=== PATIENT | female | born 1950 | race Caucasian/White ===

== ENCOUNTER → 2016-09-12 | Outpatient (CLI) | payer OTHER, MEDICARE ==
[~2016-09-12] MED LIST: GLUC1TAB21 PO; HYDR-4246 PO; LEVO250T59 PO; LUTE20CA12 PO; METH1TAB54 PO; MULT-933 PO
== END ==
LOC: LABN 23:59
PROVIDERS: ATTEND Specialist
DX: N20.1 Calculus of ureter (principal)
CPT/HCPCS: 82340

== ENCOUNTER → 2016-09-13 | Outpatient (CLI) | payer OTHER, MEDICARE ==
[2016-09-13 18:09] LABS: POTASSIUM 3.3 MEQ/L (3.6-5); URIC ACID 6.2 MG/DL (2.5-7.5)
== END ==
LOC: LAB 17:24
PROVIDERS: ATTEND Specialist
DX: N21.0 Calculus in bladder (principal)
CPT/HCPCS: 84132; 84550

== ENCOUNTER 2017-12-19 17:10 | Inpatient (IN) ==
[2017-12-19] MEDS ORDERED: ONDANSETRON 4 MG/2 ML INJECTION IVP PRN (17:16)
[2017-12-19] MEDS ORDERED: NS 1,000 ML IV ONE (17:16)
[2017-12-19] MEDS ORDERED: BISACODYL 10 MG SUPPOSITORY RECTALLY PRN (17:18)
[2017-12-19 18:03] VITALS: BMI 29.8
--- NOTE | 2017-12-19 18:16 | History & Physical Report ---
History of Present Illness Date: 12/19/17 Chief complaint: Exhausted HPI: Nella Mosley is a 67 year old who developed right flank pain and body aches, as if she had a fever on 12/18/17. She had violent shakes and chills but never actually took her fever. She felt utterly exhausted and weak. She has been thirsty but each time she tried to drink/eat anything she became nauseated. She has also had a headache. She denies chest pain or palpitations, difficulty breathing, cough/congestion or sore throat. She denies dizziness or syncope. She denies abdominal pain, diarrhea, or constipation. She has not had any urinary symptoms such as dysuria, frequency, or urgency. She had a bug bite to her right patel but otherwise denies any other rashes. She presented to [facility] on 12/18/17. She was found to be in a-flutter with a rate of 132, and after cardizem she converted to NSR. She was diagnosed with UTI and had a WBC of 19.4 and 94% neutrophils. She felt much better after her HR slowed, and IVF and analgesics, and was discharged home with Rx for metoprolol and levaquin. She followed up with Leonides Allen APRN in the clinic, but her symptoms were still persistent with nausea, myalgias, and fatigue. At that time Dr. Yeager was notified and she was admitted to inpatient status for further workup for suspected pyelonephritis, possible sepsis, and new-onset a-flutter. LOS is expected to exceed 2 overnights. Review of Systems All systems PM: 10-point ROS was reviewed, no additional remarkable complaints except - Constitutional Constitutional: Present: as per HPI - EENMT Eyes: Present: requires corrective lenses Nose: Absent: allergies Mouth/Throat: Absent: sore throat - Cardiovascular Cardiovascular: Present: as per HPI Vascular: Present: see HPI. Absent: pedal edema - Respiratory Respiratory: Present: as per HPI - Gastrointestinal Gastrointestinal: Present: as per HPI - Genitourinary Genitourinary: Present: as per HPI - Musculoskeletal Musculoskeletal: Present: as per HPI - Integumentary/Breasts Integumentary: Present: as per HPI - Neurological Neurological: Present: as per HPI - Psychiatric Psychiatric: Absent: anxiety - Endocrine Endocrine: Present: as per HPI - Hematologic/Lymphatic Hematologic/Lymphatic: Absent: easy bleeding, easy bruising - Allergic/Immunologic Allergic/Immunologic: Absent: seasonal rhinorrhea Past Medical History Medical History: Medical History (Last Updated 12/19/17 @ 18:30 by Kat Arreola APRN) Hyperparathyroidism (Chronic) Onset Date: ~10/06/17 Nephrolithiasis (Chronic) Onset Date: ~03/2016 Prediabetes (Chronic) Onset Date: ~10/06/17 Atrial flutter Onset Date: ~12/18/17 Surgical History: cystoscopy with left ureteral stenting 12/2016. Colonoscopy 2007, 2017 (Dr. Stern). Hysterectomy (age 47). Right rotator cuff repair ( age 59) Family History Updates: Mother - breast cancer. Father - heart disease. MGF - diabetes Family History: As Above - Social History Smoking status: Former smoker Medications Home Medications Medication Instructions Recorded Confirmed Type HydroCHLOROthiazide [Hydrodiuril] 25 mg PO BID 01/13/17 12/19/17 History Multivitamin [One Daily] 1 each PO DAILY 09/09/17 12/19/17 History metaxalone 800 mg tablet See Label Instructions PO TID PRN 12/11/17 12/19/17 Rx #10 tab Levofloxacin [Levaquin] 1 tab PO DAILY #10 tab 12/18/17 12/19/17 Rx Metoclopramide HCl [Reglan] 10 mg PO QID PRN #30 tab 12/18/17 12/19/17 Rx Metoprolol Tartrate 50 mg PO BID #60 tab 12/18/17 12/19/17 Rx predniSONE [Prednisone] See Label Instructions PO DAILY 12/19/17 12/19/17 History Allergies Allergy/AdvReac Type Severity Reaction Status Date / Time Sulfa (Sulfonamide Allergy Unknown High Fever Verified 12/11/17 11:00 Antibiotics) Exam Vital Signs: Temperature 101.5 F H 12/19/17 17:34 Pulse Rate 83 12/19/17 17:34 Respiratory Rate 16 12/19/17 17:34 Blood Pressure 123/62 12/19/17 17:34 Pulse Oximetry 95 12/19/17 17:34 Height/Weight/BMI: Height 1.55 m Weight 71.7 kg Body Mass Index 29.8 - Constitutional Present: mild distress, well nourished, well developed - Routine HEENT Exam Head: Present: normocephalic Eye: Present: PERRL. Absent: conjunctival icterus, scleral injection ENT: Present: mucous membranes moist, oropharynx clear - Routine Neck Exam Present: supple, lymphadenopathy - Routine Respiratory Exam Present: crackles (mild bibasilar crackles) - Routine Cardiovascular Exam Present: RRR, S1, S2, murmur (2-3/6 MARY) - Routine Abdominal Exam Present: soft, normoactive bowel sounds, non distended, non tender - Routine Extremities Exam Present: no edema, pulses intact, normal capillary refill - Routine Back/Spine/Pelvis Exam Back/Spine: Present: full ROM. Absent: CVA tenderness - Routine Skin Exam Present: intact, erythema (Left upper arm), dry, warm - Routine Neurological Exam Present: alert, oriented X3, CN II-XII intact, moving all extremities, vision grossly intact, hearing grossly intact, normal speech. Absent: sensory deficit , motor deficit, altered mental status, facial asymmetry - Routine Psychiatric Exam Present: normal affect, normal thought process, cooperative Results - Labs CBC & Chem 7: 12/19/17 17:33 12/19/17 17:33 Microbiology Results: Microbiology 12/19/17 17:51 Peripheral/Iv Start Gram Stain - Final Not performed 12/19/17 17:33 Peripheral/Iv Start Gram Stain - Final Not performed Assessment and Plan Assessment and Plan: Assessment Severe sepsis secondary to E. coli Pyelonephritis (SIRS = leukocytosis, fever 101.5, organ dysfunction: bilirubin >2) UTI/Pyelonephritis with E coli New onset a-flutter on 12/18/17 Erythema to Left upper arm (tricep area) Transaminitis Hypokalemia (POA) Hypercalcemia (POA) - chronic Hypophosphatemia Hyperparathyroidism Nephrolithiasis Overweight with BMI 29.9 Plan Admit, inpatient status, under the hospitalist service. PCP: Dr. Whelan A-fluttmagi -EKG, troponin -Echo in am -Telemetry Pyelonephritis, severe sepsis -Urine culture from 12/18/17 + for E. coli, sensitivities pending -Rocephin daily -lactate normal @ 1.8 -F/U procalcitonin, cultures -IVF bolus then NS at 125 ml/hr Hypokalemia/Hypophosphatemia -replacement ordered per attending -Mag 1.8 Transaminitis -? sepsis response -trend Advanced directives -Brother is DPOA -Code status: DNR [place] and ED records reviewed. DVT Prophylaxis: SCD's Resuscitation Status: Do Not Resuscitate - Physician Narrative Physician: Andriy Yeager MD Narrative: Date: 12/19/17 Time: 1947 Have independently interviewed and examined pt. Chart reviewed. Case discussed with my MANUFACT[employer]ING [employer]ANT CONTROLLER. Care plan developed with my supervision; agree with above. Patient started feeling very tired/weak yesterday-unusual for her as typically very energetic. Would feel hot/cold. Notes nausea. Presented to ED for evaluation. HR initially high-EKG showing a flutter. Given IVF and Diltiazem and HR improved. WBC with elevation. Urine showing evidence of infection so started on levofloxacin. Did follow up in clinic today, but still very weak, washed out, and achy. Has frontal MOULTON. Muscle aches. Nausea but no emesis. Not feeling SOA or congested. No pain with breathing, chest pressure or palpitations. Temp elevated at 103 in clinic. With symptoms, made direct admit for treatment of severe sepsis secondary to Ecoli UTI/Pyelonephritis. Lungs: clear CV: regular AB: soft nt/nd BS decreased MSE: awake alert appropriate Plan: Inpatient admission due to sepsis from Ecoli. IVF for support - will bolus 1L NS and than initiate NS with 20 KCL and Kphos at 125cc/hr. Ceftriaxone for urinary coverage - check on sensitivities from ED. Check ECHO secondary to rhythm change yesterday - monitor tele; cardiology consult as indicated. Zofran prn nausea. Will hold on metoprolol initiated in ED yesterday. Check TSH. Monitor lab. Care to return to Dr Whelan at time of discharge from [facility]. Of note - is at the end of Prednisone taper. See in walk in clinic on 12/11 secondary to back pain. Tapering down on Prednisone - to be on 10mg daily for 3 more days then stop. Will not reinstitute Prednisone at this time. Hospital Course Summary Disclaimer: The visit summary below is not to be considered part of the above Progress Note. Hospital Course: 12/19/17 Admit, inpatient status, under the hospitalist service. PCP: Dr. Slechta Pyelonephritis, severe sepsis -Urine culture from 12/18/17 + for E. coli, sensitivities pending -Rocephin daily -lactate normal @ 1.8 -F/U procalcitonin, cultures -IVF bolus then NS at 125 ml/hr A-flutter -- in ED 12/18/17 -EKG, troponin -Echo in am -Telemetry -Likely sepsis response Hypokalemia/Hypophosphatemia -replacement ordered per attending -Mag 1.8 Transaminitis -? sepsis response -trend Advanced directives -Brother is DPOA -Code status: DNR
[2017-12-19] MEDS: ACETAMINOPHEN 325 MG TABLET PO PRN ×2 (18:17→22:43)
[2017-12-19] MEDS: CEFTRIAXONE 1 G in NS 100 ML IV SCH (18:18)
[2017-12-19] MEDS ORDERED: METAXALONE 800 MG TABLET PO PRN (19:12)
[2017-12-19] MEDS: POTASSIUM CHLORIDE INJ 20 MEQ, POTASSIUM PHOSPHATE (mEq) 20 MEQ in NS 1,000 ML IV SCH (19:56)
[2017-12-20] MEDS: POTASSIUM CHLORIDE INJ 20 MEQ, POTASSIUM PHOSPHATE (mEq) 20 MEQ in NS 1,000 ML IV SCH (04:23)
[2017-12-20] MEDS: ACETAMINOPHEN 325 MG TABLET PO PRN ×3 (06:15→21:39)
[2017-12-20] MEDS: MULTI-VITAMIN PLAIN TABLET PO SCH (08:46)
--- NOTE | 2017-12-20 08:52 | XRay Report ---
Indication: Sepsis PROCEDURE: XR chest 1V: Encounter: Initial Comparison: None FINDINGS: Minimal linear atelectasis or scar in the left lower lobe. The lungs are otherwise clear. There is no consolidative pneumonia, pleural effusion or pneumothorax identified. The heart size, pulmonary vasculature and mediastinum are within normal limits. Subacute healing right clavicular fracture. IMPRESSION: No acute cardiopulmonary abnormality. .
--- NOTE | 2017-12-20 11:27 | XRay Report ---
INDICATION: borderline hypoxia, rule out pulm edema, other? PROCEDURE: CHEST 2-VIEWS UPRIGHT (PA & LAT) Encounter: Initial COMPARISON: December 19, 2017 FINDINGS: Lungs again show linear scarring or atelectasis in the left lower lobe. There is new mild interstitial prominence with trace pleural fluid seen on the lateral view. No pneumothorax. No lobar pneumonia. Heart size and mediastinal contours are stable. Impression: Developing mild pulmonary edema. .
--- NOTE | 2017-12-20 11:32 | Progress Note ---
- Date 12/20/17 Subjective: Nella is still feeling miserable. She is very fatigued and tired. While her nausea has improved, she does not feel like eating anything. She drank some apple juice earlier however. She has started to cough today. She denies feeling short of breath but was mildly hypoxic this morning at 89% on room air. She continues to have fever and chills and was chilling when I saw her. She states that her right flank pain has resolved and it doesn't feel at all like she has a kidney stone. We talked about getting a CT scan to look for a stone but she declined. Objective Vital signs: Temperature 100.1 F 12/20/17 11:06 Pulse Rate 74 12/20/17 07:51 Respiratory Rate 14 12/20/17 07:23 Blood Pressure 106/59 12/20/17 07:23 Pulse Oximetry 92 12/20/17 11:06 Height/Weight/BMI: Height 1.55 m Weight 74.9 kg Body Mass Index 29.8 - Constitutional Present: mild distress, well nourished, well developed - Routine HEENT Exam Head: Present: normocephalic Eye: Present: PERRL. Absent: conjunctival icterus, scleral injection - Routine Respiratory Exam Present: crackles (B/L bases, increased ) - Routine Cardiovascular Exam Present: RRR, S1, S2, murmur (soft ) - Routine Abdominal Exam Present: soft, non distended, non tender. Absent: normoactive bowel sounds ( hyperactive) - Routine Extremities Exam Present: no edema - Routine Musculoskeletal Exam Musculoskeletal: Present: moving extremities well - Routine Skin Exam Present: warm (febrile). Absent: dry (clammy, diaphoretic) Comments: The erythema to her left tricep area has resolved - Routine Neurological Exam Present: alert, oriented X3, CN II-XII intact, moving all extremities, vision grossly intact, hearing grossly intact, normal speech. Absent: sensory deficit , motor deficit, altered mental status, facial asymmetry - Routine Psychiatric Exam Present: normal affect, normal thought process, cooperative Results - Labs CBC & Chem 7: 12/20/17 03:51 12/20/17 03:51 Microbiology Results: Microbiology 12/19/17 17:51 Urine, Voided (Cc/notcc) Urine Culture - Preliminary Escherichia coli 12/19/17 17:51 Peripheral/Iv Start Blood Culture - Preliminary Culture Initiated - Results Pending 12/19/17 17:33 Peripheral/Iv Start Blood Culture - Preliminary Culture Initiated - Results Pending Assessment and Plan Assessment and Plan: Assessment Severe sepsis secondary to E. coli Pyelonephritis (SIRS = leukocytosis, fever 101.5, organ dysfunction: bilirubin >2) UTI/Pyelonephritis with E coli New onset a-flutter on 12/18/17 Erythema to Left upper arm (tricep area) Transaminitis Hypokalemia (POA) - resolved Thrombocytopenia (not POA) Mild hypoxia 89% room air, mild pulmonary edema (12/20/17) Hypercalcemia (POA) - chronic Hypophosphatemia (POA) - resolved Hyperparathyroidism Nephrolithiasis Overweight with BMI 29.9 Plan A-flutter -EKG yesterday showed sinus with IVC delay, troponin neg. -Echo done this am, pending Pyelonephritis, severe sepsis -Urine culture from 12/18/17 + for E. coli, pansensitive -Urine culture from 12/19/17 also + for E. coli -Continue Rocephin, day #2 -Procalcitonin 6.89 --> 4.54 -WBC trending down -continues to have fevers. Mild hypoxia -CXR repeated, personally reviewed - mild edema -Stop IVF and give Lasix 20 mg IV x1 -IS Hypokalemia/Hypophosphatemia -resolved after replacement yesterday Transaminitis -Improving, trending down. -Total bili 1.5 Low TSH (0.19) -normal free T4 -will discuss with attending 12/20/2017-1:20 PM-I examined the patient independently. I reviewed this chart, the patient history, and the COMMERCIAL STRIPPER's/PA's documented findings as above. We discussed and formulated the assessment and plan as above with the additions below.-Dr. Ness The patient was seen this afternoon in her room. She states she is still feeling worn out and feels hot and sweaty. She states she had some right lower abdominal pain yesterday but that has resolved. She denies having any flank pain. A week ago when she was in immediate care she had sciatica pain in her buttock and leg but did not have flank pain or back pain at that time. She states her sciatic pain has resolved. Her appetite is poor but she is drinking fluids without difficulties. She had borderline hypoxia this morning but denied feeling short of breath. She denies lightheadedness, chest pains or palpitations. When she was in the emergency room on Tuesday she had an EKG showing atrial flutter with rapid ventricular response and intraventricular conduction delay. She reportedly converted with IV fluids and Cardizem. She states she's never had any heart problems to her knowledge. She did not notice any palpitations or chest discomfort. Here in the hospital she's been on telemetry and has been in sinus rhythm. On exam she is alert and in no acute distress. Her glasses are actually steaming over and she states this is because she feels so warm. Skin is mildly diaphoretic. Chest reveals crackles in the bases without wheezes or rhonchi. Cardiovascular reveals a regular rate and rhythm. Abdomen is soft, bowel sounds are normal and abdomen is nontender. Back exam reveals no CVA tenderness. She does have a little bit of mild discomfort in the left low back with percussion but otherwise denies any back pain. Extremities are free of edema. SCDs are on. Blood cultures 2 are pending Urine culture from the ER visit on 12/18/2017 shows Escherichia coli which is pansensitive Urine culture from admission yesterday shows Escherichia coli with sensitivities pending. White blood cell count is coming down, but her steroids were also discontinued TSH was low at 0.19 but free T4 was normal. Pro-calcitonin is trending down. Calcium has improved with IV fluids. Phosphorus has normalized after being low yesterday. AST and ALT and total bilirubin are all trending down. Chest x-ray reveals developing mild pulmonary edema-I have also viewed the films and agree Impression and plan Severe sepsis-white count and pro-calcitonin improving UTI with Escherichia coli/possible pyelonephritis/history of nephrolithiasis- the patient may need a 2 week course of antibiotics-new Rocephin and likely switch to oral antibiotics when symptomatically improving and stable for dismissal Regarding possible atrial flutter with rapid ventricular response on 12/18/2017 when the patient was in the ER-consult Dr. Padilla. The patient has not had recurrence. She is also noted to have intraventricular conduction delay Echocardiogram has been ordered and is pending Hyperparathyroidism-calcium has improved with IV fluids. We'll monitor. Low TSH with normal free T4-recommend thyroid evaluation with Dr. Valles when she sees him regarding hyperparathyroidism Mild hypoxia this morning-resolved, IV fluids discontinued and one time dose of Lasix given. Encouraged supplement shakes while the patient has poor appetite DVT Prophylaxis: SCD's Resuscitation Status: Do Not Resuscitate - Physician Narrative Narrative: Date: 12/19/17 Time: 1811 Hospital Course Summary Disclaimer: The visit summary below is not to be considered part of the above Progress Note. Hospital Course: 12/19/17 Admit, inpatient status, under the hospitalist service. PCP: Dr. Whelan Pyelonephritis, severe sepsis -Urine culture from 12/18/17 + for E. coli, sensitivities pending -Rocephin daily -lactate normal @ 1.8 -F/U procalcitonin, cultures -IVF bolus then NS at 125 ml/hr A-flutter -- in ED 12/18/17 -EKG, troponin -Echo in am -Telemetry -Likely sepsis response Hypokalemia/Hypophosphatemia -replacement ordered per attending -Mag 1.8 Transaminitis -? sepsis response -trend Advanced directives -Brother is DPOA -Code status: DNR 12/20/17 -EKG yesterday showed sinus with IVC delay, troponin neg. Echo done this am -Urine culture from 12/18/17 + for E. coli, pansensitive. Urine culture from 12/19 also + for E. coli -Continue Rocephin, day #2. Procalcitonin 6.89 --> 4.54. WBC trending down. Continues to have fevers. Mild hypoxia-CXR repeated - mild edema. Stop IVF and give Lasix 20 mg IV x1. IS Hypokalemia/Hypophosphatemia-resolved after replacement yesterday Transaminitis-Improving, trending down. Low TSH (0.19)-normal free T4
[2017-12-20] MEDS ORDERED: FUROSEMIDE 20 MG/2 ML INJECTION IVP ONE (11:44)
--- NOTE | 2017-12-20 13:40 | Cardiology Consult Note ---
History of Present Illness Consult date: 12/20/17 Requesting physician: Shantelle Ness Consult reason: atrial fibrillation Chief complaint: exhausted History of present illness: Nella is a 67 year old who developed right flank pain and body aches, violent shakes and chills but never actually took her temperature. She felt exhausted and weak. She was thirsty but when she tried to drink/eat anything she became nauseated. She has also had a headache. She presented to [facility] on 12/18/17. She was found to be in a-flutter with a rate of 132, and after Cardizem she converted to NSR. She was diagnosed with UTI and had a WBC of 19.4 and 94% neutrophils. She felt much better after her HR slowed, and IVF and analgesics, and was discharged home with Rx for metoprolol and Levaquin. She followed up with Leonides Allen APRN in the clinic, but her symptoms were still persistent with nausea, myalgias, and fatigue. At that time Dr. Yeager was notified and she was admitted to inpatient status for further workup for suspected pyelonephritis , possible sepsis, and new-onset a-flutter. Due to new A Flutter on EKG, Dr. Padilla is consulted and we appreciate the consult. She denies chest pain or palpitations, difficulty breathing, cough/congestion or sore throat. She denies dizziness or syncope. She denies abdominal pain, diarrhea, or constipation. She has not had any urinary symptoms such as dysuria , frequency, or urgency. Review of Systems - Constitutional Constitutional: Present: as per HPI - EENMT Eyes: Absent: change in vision Balance: Absent: vertigo Mouth/Throat: Present: as per HPI - Cardiovascular Cardiovascular: Absent: chest pain, palpitations, syncope, dyspnea on exertion, orthopnea, edema, heart murmur Rhythm: Absent: abnormal rhythm Vascular: Absent: pedal edema - Respiratory Respiratory: Present: as per HPI - Gastrointestinal Gastrointestinal: Present: as per HPI - Genitourinary Genitourinary: Present: as per HPI - Integumentary/Breasts Integumentary: Absent: rash - Neurological Neurological: Present: as per HPI - Endocrine Endocrine: Present: as per HPI PFSH Patient Stated Medical History Cardiac Arrhythmia Yes Sleep Apnea No: Pt denies Hx Kidney Stones Yes Osteoarthritis Yes Post Menopausal Yes Clinic Medical History (Last Updated 12/19/17 @ 18:30 by Kat Arreola APRN) Hyperparathyroidism (Chronic Medical ~10/06/17) Nephrolithiasis (Chronic Medical ~03/2016) Prediabetes (Chronic Medical ~10/06/17) Atrial flutter (Acute Medical ~12/18/17) Surgical History: cystoscopy with left ureteral stenting 12/2016. Colonoscopy 2017 (Dr. Stern). Hysterectomy (age 47). Right rotator cuff repair ( age 59) Family History: Family History (Last Updated 12/19/17 @ 18:18 by Kat Arreola APRN) Mother Cancer of breast Father Heart disease CABG x3 Maternal Grandfather Type 2 diabetes mellitus Family History Updates: Mother - breast cancer. Father - heart disease. MGF - diabetes - Social History Smoking status: Former smoker Substance use type: does not use Alcohol intake frequency: does not drink Medications Home Medications Medication Instructions Recorded Confirmed Type HydroCHLOROthiazide [Hydrodiuril] 25 mg PO BID 01/13/17 12/19/17 History Multivitamin [One Daily] 1 each PO DAILY 09/09/17 12/19/17 History metaxalone 800 mg tablet See Label Instructions PO TID PRN 12/11/17 12/19/17 Rx #10 tab Levofloxacin [Levaquin] 1 tab PO DAILY #10 tab 12/18/17 12/19/17 Rx Metoclopramide HCl [Reglan] 10 mg PO QID PRN #30 tab 12/18/17 12/19/17 Rx Metoprolol Tartrate 50 mg PO BID #60 tab 12/18/17 12/19/17 Rx predniSONE [Prednisone] See Label Instructions PO DAILY 12/19/17 12/19/17 History Allergies Allergy/AdvReac Type Severity Reaction Status Date / Time Sulfa (Sulfonamide Allergy Unknown High Fever Verified 12/11/17 11:00 Antibiotics) Exam Vital signs: Temperature 100.1 F 12/20/17 11:06 Pulse Rate 74 12/20/17 07:51 Respiratory Rate 18 12/20/17 12:05 Blood Pressure 106/59 12/20/17 07:23 Pulse Oximetry 94 12/20/17 12:05 - Constitutional no acute distress, well nourished, cooperative - Routine HEENT Exam Head: Present: normocephalic ENT: Present: mucous membranes moist - Routine Neck Exam Absent: JVD, carotid bruit - Routine Chest/Breast/Axilla Exam Chest wall: Absent: tenderness - Routine Respiratory Exam Present: rales. Absent: dyspnea, CTA bilaterally - Routine Cardiovascular Exam Present: RRR, S1, S2, murmur - Routine Abdominal Exam Present: soft, non tender - Routine Extremities Exam Present: no edema - Routine Skin Exam Present: intact, dry, warm - Routine Neurological Exam Present: alert - Routine Psychiatric Exam Present: normal affect Results 12/21/17 04:07 12/21/17 04:07 Cardiac Enzymes 12/19/17 12/20/17 Range/Units 17:33 03:51 AST 55 H D 51 H (14-36) U/L Troponin I < 0.012 (0-0.12) ng/ml CBC 12/19/17 12/20/17 Range/Units 17:33 03:51 WBC 13.6 H 9.4 (4.5-11.0) T/MM3 RBC 4.40 3.92 L (4.00-5.20) M/MM3 Hgb 13.1 11.7 L (12-16) GM/DL Hct 37.9 34.8 L (36-46) % Plt Count 153 126 L (130-400) T/MM3 Neut # (Auto) Not performed Not performed Lymph # (Auto) Not performed Not performed [place] # (Auto) Not performed Not performed Eos # (Auto) Not performed Not performed Baso # (Auto) Not performed Not performed Comprehensive Metabolic Panel 12/19/17 12/20/17 Range/Units 17:33 03:51 Sodium 137 138 (136-146) MEQ/L Potassium 3.2 L 3.7 (3.6-5) MEQ/L Chloride 98 104 D (98-107) MEQ/L Carbon Dioxide 28 D 27 (22-30) MEQ/L BUN 23.0 H 18.0 H (7-17) MG/DL Creatinine 0.8 D 0.7 (0.7-1.2) mg/dL Glucose 133 H 122 H (65-110) MG/DL Calcium 11.1 H D 10.3 H (8.4-10.2) MG/DL AST 55 H D 51 H (14-36) U/L ALT 71 H 64 H (1-35) U/L Alkaline Phosphatase 126 110 (38-126) U/L Total Protein 6.8 5.6 L (6.3-8.2) g/dL Albumin 4.2 3.2 L (3.5-5.0) g/dL Intake and Output 12/19/17 12/20/17 12/20/17 22:59 06:59 14:59 Intake Total 1149.995 / 0251.617 5067.5455 / 1214.5455 1521.4165 / 1521.4165 Output Total 300 / 300 200 / 200 Balance 849.995 / 776.155 9498.5455 / 1014.5455 1521.4165 / 1521.4165 Intake: IV 1149.995 / 6371.821 8892.5455 / 1014.5455 935.4165 / 935.4165 Ceftriaxone 1 g In Ns 100 ml @ 100 / 100 200 mls/hr IV Q24H [facility] Rx#: [id number] Ns 1,000 ml @ 999.9 mls/hr IV . 1049.995 / 1049.995 Q1H ONE Rx#:[id number] Potassium Chloride Inj 20 meq 1014.5455 / 1014.5455 935.4165 / 935.4165 POTASSIUM PHOSPHATE (mEq) 20 meq In Ns 1,000 ml @ 125 mls/hr IV .Q8H7M [facility] Rx#:[id number] Oral 0 / 0 200 / 200 586 / 586 Output: Urine 300 / 300 200 / 200 Other: Urine Appearance Clear Clear Urine Color Bright Yellow Light Nery Urine Odor Normal # Voids 1 1 Weight 158 lb 1.143 oz 165 lb 2.02 oz Patient Weight 12/21/17 06:59 Weight 165 lb 2.02 oz - Imaging and Cardiology Imaging & Cardiology Narrative: Date of Exam: 12/20/17 Type of Exam(s): US echo doppler complete DATE OF PROCEDURE 12/20/2017 PROCEDURE PERFORMED 2D echocardiography, M-mode assessment, full color spectral Doppler assessment. FINDINGS 1. LEFT VENTRICLE. Left ventricle appears normal in size. Normal left ventricular wall thickness noted. Left ventricular systolic function appears low normal. Estimated left ventricular ejection fraction is 50-55%. No significant regional wall motion abnormalities noted. Grade II diastolic dysfunction noted suggestive of elevated left ventricular end diastolic pressure and elevated left atrial pressure. 2. RIGHT VENTRICLE. Right ventricle appears normal in size. Normal right ventricular wall thickness noted. Normal right ventricular systolic function noted. 3. RIGHT ATRIUM. Right atrium appears normal in size. 4. LEFT ATRIUM. Left atrium is mildly enlarged. 5. MITRAL VALVE. Mitral valve appears structurally normal. There is trivial mitral regurgitation noted. No significant mitral stenosis noted. 6. AORTIC VALVE. Aortic valve appears tricuspid. No significant aortic stenosis noted. Trivial aortic regurgitation noted. 7. TRICUSPID VALVE. Tricuspid valve appears structurally normal. Trivial tricuspid regurgitation noted. 8. PULMONIC VALVE. Pulmonic valve poorly visualized on today's study. Trivial pulmonic regurgitation noted. 9. INFERIOR VENA CAVA. IVC appears normal in size. Normal respirophasic variation noted. 10. PULMONARY ARTERY. Unable to estimate pulmonary artery systolic pressure accurately due to incomplete tricuspid regurgitation jet. CONCLUSIONS 1. Low normal left ventricular systolic function, estimated ejection fraction of 50-55%. 2. Normal RV systolic function. 3. Trivial mitral regurgitation noted. 4. Trivial aortic regurgitation noted. 5. Trivial tricuspid regurgitation noted. 6. Inferior vena cava appears normal in size with normal respirophasic variation noted. Date of Exam: 12/20/17 Ordering Provider: Shantelle Ness MD Type of Exam(s): XR chest 2V Reason for Exam(s): borderline hypoxia, rule out pulm edema, other? INDICATION: borderline hypoxia, rule out pulm edema, other? PROCEDURE: CHEST 2-VIEWS UPRIGHT (PA & LAT) Encounter: Initial COMPARISON: December 19, 2017 FINDINGS: Lungs again show linear scarring or atelectasis in the left lower lobe. There is new mild interstitial prominence with trace pleural fluid seen on the lateral view. No pneumothorax. No lobar pneumonia. Heart size and mediastinal contours are stable. Impression: Developing mild pulmonary edema. 12/20/17 13:59 12/21/17 12:56 EKG interpretations - EKG EKG results cardiology: sinus rhythm - Blocks, axis, hypertrophy, ST abn QRS axis and voltage: left axis deviation (-30 to -90) Assessment and Plan - Assessment and Plan (1) Tachycardia Current visit: Yes Status: Acute Presented to ED, EKG showed A Flutter, given Cardizem and fluid bolus - converted and discharged with abx for UTI and BB - now hospitalized with sepsis, no return of tachycardia - EKG reviewed, appears ST but impossible to say for sure - No previous history of arrhythmia - Plan outpatient holter monitor after discharge - continue to monitor telemetry - TSH 0.19 and Mag 1.9 (2) Sepsis Current visit: Yes Status: Acute Urinary source. Managed by medicine - Assessment and Plan Tachycardia Current visit: Yes Status: Acute - Presented to ED, EKG showed A Flutter, given Cardizem and fluid bolus - converted and discharged with abx for UTI and BB - now hospitalized with sepsis, no return of tachycardia - EKG reviewed, appears ST but impossible to say for sure - No previous history of arrhythmia - Plan outpatient holter monitor after discharge - continue to monitor telemetry - TSH 0.19 and Mag 1.9 Sepsis Current visit: Yes Status: Acute - Urinary source. Managed by medicine Thank you for allowing us to participate in the care of this patient, we will follow along with you Hospital Course Summary Disclaimer: The visit summary below is not to be considered part of the above Progress Note. Hospital Course: 12/19/17 Admit, inpatient status, under the hospitalist service. PCP: Dr. Whelan Pyelonephritis, severe sepsis -Urine culture from 12/18/17 + for E. coli, sensitivities pending -Rocephin daily -lactate normal @ 1.8 -F/U procalcitonin, cultures -IVF bolus then NS at 125 ml/hr A-flutter -- in ED 12/18/17 -EKG, troponin -Echo in am -Telemetry -Likely sepsis response Hypokalemia/Hypophosphatemia -replacement ordered per attending -Mag 1.8 Transaminitis -? sepsis response -trend Advanced directives -Brother is DPOA -Code status: DNR 12/20/17 -EKG yesterday showed sinus with IVC delay, troponin neg. Echo done this am -Urine culture from 12/18/17 + for E. coli, pansensitive. Urine culture from 12/19 also + for E. coli -Continue Rocephin, day #2. Procalcitonin 6.89 --> 4.54. WBC trending down. Continues to have fevers. Mild hypoxia-CXR repeated - mild edema. Stop IVF and give Lasix 20 mg IV x1. IS Hypokalemia/Hypophosphatemia-resolved after replacement yesterday Transaminitis-Improving, trending down. Low TSH (0.19)-normal free T4
--- NOTE | 2017-12-20 16:06 | Echocardiogram ---
DATE OF PROCEDURE 12/20/2017 PROCEDURE PERFORMED 2D echocardiography, M-mode assessment, full color spectral Doppler assessment. INDICATION: Abnormal EKG, CHF FINDINGS 1. LEFT VENTRICLE. Left ventricle appears normal in size. Normal left ventricular wall thickness noted. Left ventricular systolic function appears low normal. Estimated left ventricular ejection fraction is 50-55%. No significant regional wall motion abnormalities noted. Grade II diastolic dysfunction noted suggestive of elevated left ventricular end diastolic pressure and elevated left atrial pressure. 2. RIGHT VENTRICLE. Right ventricle appears normal in size. Normal right ventricular wall thickness noted. Normal right ventricular systolic function noted. 3. RIGHT ATRIUM. Right atrium appears normal in size. 4. LEFT ATRIUM. Left atrium is mildly enlarged. 5. MITRAL VALVE. Mitral valve appears structurally normal. There is trivial mitral regurgitation noted. No significant mitral stenosis noted. 6. AORTIC VALVE. Aortic valve appears tricuspid. No significant aortic stenosis noted. Trivial aortic regurgitation noted. 7. TRICUSPID VALVE. Tricuspid valve appears structurally normal. Trivial tricuspid regurgitation noted. 8. PULMONIC VALVE. Pulmonic valve poorly visualized on today's study. Trivial pulmonic regurgitation noted. 9. INFERIOR VENA CAVA. IVC appears normal in size. Normal respirophasic variation noted. 10. PULMONARY ARTERY. Unable to estimate pulmonary artery systolic pressure accurately due to incomplete tricuspid regurgitation jet. CONCLUSIONS 1. Low normal left ventricular systolic function, estimated ejection fraction of 50-55%. 2. Normal RV systolic function. 3. Trivial mitral regurgitation noted. 4. Trivial aortic regurgitation noted. 5. Trivial tricuspid regurgitation noted. 6. Inferior vena cava appears normal in size with normal respirophasic variation noted. [facility]
[2017-12-20] MEDS ORDERED: HYDROCODONE/APAP 5mg/325mg TABLET PO PRN (17:25)
[2017-12-20] MEDS: CEFTRIAXONE 1 G in NS 100 ML IV SCH (17:41)
[2017-12-20] MEDS ORDERED: IBUPROFEN 400 MG TABLET PO PRN (18:39)
[2017-12-20] MEDS: IBUPROFEN 200 MG TABLET PO PRN (18:55)
[2017-12-20] MEDS ORDERED: NS FLUSH BAG 500ml IV PRN (19:29)
[2017-12-20] MEDS: LEVOFLOXACIN PB 750 MG/150 ML BAG IV SCH (19:37)
[2017-12-21] MEDS: PHOSPHORUS 250 MG TABLET PO SCH ×3 (09:01→17:28)
[2017-12-21] MEDS: MULTI-VITAMIN PLAIN TABLET PO SCH (09:03)
--- NOTE | 2017-12-21 13:00 | Cardiology Progress Note ---
Subjective Principal diagnosis: tachycardia Interval history: Nella is seen in follow up for tachycardia. She is in no distress, denies chest pain, pressure, palpitations, dizziness or nausea Exam Vital signs: Temperature 97.5 F 12/21/17 11:18 Pulse Rate 65 12/21/17 11:18 Respiratory Rate 18 12/21/17 11:18 Blood Pressure 123/65 12/21/17 11:18 Pulse Oximetry 97 12/21/17 11:18 Inpatient Medications: Generic Name Dose Route Start Last Admin Trade Name Freq PRN Reason Stop Dose Admin Acetaminophen 650 mg 12/19/17 17:17 12/20/17 21:39 Tylenol PO 650 mg Q5H PRN Administration Discomfort Hydrocodone Bitart/Acetaminophen 1 tab 12/20/17 17:25 12/20/17 17:36 [place] 5/325 PO 1 tab Q6H PRN Administration Pain Bisacodyl 10 mg 12/19/17 17:18 Dulcolax RECTALLY DAILY PRN Constipation Ceftriaxone Sodium 1 g/ Sodium 100 mls @ 200 mls/hr 12/19/17 18:00 12/20/17 18:11 Chloride IV Infused Q24H [facility] Levofloxacin/Dextrose 750 mg in 150 mls @ 100 mls/hr 12/20/17 20:00 12/20/17 21:14 Levaquin 750 Mg Premix IV Infused Q24H [facility] Ibuprofen 400 mg 12/20/17 18:45 12/20/17 18:55 Motrin PO 400 mg Q6H PRN Administration Pain Magnesium Hydroxide 30 ml 12/19/17 17:17 Mom PO DAILY PRN Constipation Metaxalone 400 - 800 mg 12/19/17 19:12 Skelaxin PO TID PRN muscle spasm Multivitamins 1 tab 12/20/17 09:00 12/21/17 09:03 Theragran PO 1 tab DAILY [facility] Administration Ondansetron HCl 4 mg 12/19/17 17:16 12/19/17 18:17 Zofran IVP 4 mg Q6H PRN Administration Nausea Sodium Chloride 500 ml 12/20/17 19:29 12/20/17 19:37 Normal Saline IV 500 ml PRN PRN Administration Sodium Phosphate 500 mg 12/21/17 08:00 12/21/17 11:25 K-Phos *Neutral* Tablet PO 12/21/17 17:31 500 mg WM EVE Administration Discontinued Medications Generic Name Dose Route Start Last Admin Trade Name Chrissy PRN Reason Stop Dose Admin Furosemide 20 mg 12/20/17 11:44 12/20/17 11:56 Lasix 20 Mg/2 Ml IVP 12/20/17 11:45 20 mg ONCE ONE Administration Sodium Chloride 1,000 mls @ 999.9 mls/hr 12/19/17 17:16 12/19/17 19:56 Normal Saline IV 12/19/17 18:15 Infused .Q1H [facility] Potassium Chloride 20 meq/ 1,014.5455 mls @ 125 mls/hr 12/19/17 19:30 11:52 Potassium Phosphate 20 meq/ IV Infused Sodium Chloride .Q8H7M [facility] Ibuprofen 400 mg 12/20/17 18:39 Motrin PO Q6H PRN Pain Potassium Chloride 20 meq 12/20/17 11:44 12/20/17 11:56 K-Dur 20 Meq Tablet PO 12/20/17 11:45 20 meq O ONE Administration - Constitutional no acute distress, well nourished, cooperative - Routine HEENT Exam Head: Present: normocephalic ENT: Present: mucous membranes moist - Routine Neck Exam Absent: JVD, carotid bruit - Routine Chest/Breast/Axilla Exam Chest wall: Absent: tenderness - Routine Respiratory Exam Present: CTA bilaterally. Absent: dyspnea, rales, wheezes - Routine Cardiovascular Exam Present: RRR, no murmur - Routine Abdominal Exam Present: soft, non tender - Routine Extremities Exam Present: no edema - Routine Skin Exam Present: intact, dry, warm - Routine Neurological Exam Present: alert, oriented X3 - Routine Psychiatric Exam Present: normal affect Results 12/22/17 04:46 12/22/17 04:46 CBC 12/21/17 Range/Units 04:07 WBC 5.6 D (4.5-11.0) T/MM3 RBC 3.80 L (4.00-5.20) M/MM3 Hgb 11.3 L (12-16) GM/DL Hct 33.5 L (36-46) % Plt Count 112 L (130-400) T/MM3 Neut # (Auto) 4.6 (1.8-7.7) T/MM3 Lymph # (Auto) 0.4 L (1-4.8) T/MM3 [place] # (Auto) 0.5 (0-0.8) T/MM3 Eos # (Auto) 0.1 (0-0.5) T/MM3 Baso # (Auto) 0.0 (0-0.2) T/MM3 Comprehensive Metabolic Panel 12/21/17 Range/Units 04:07 Sodium 139 (136-146) MEQ/L Potassium 4.2 (3.6-5) MEQ/L Chloride 105 (98-107) MEQ/L Carbon Dioxide 27 (22-30) MEQ/L BUN 16.0 (7-17) MG/DL Creatinine 0.6 L (0.7-1.2) mg/dL Glucose 103 (65-110) MG/DL Calcium 10.8 H (8.4-10.2) MG/DL Albumin 3.1 L (3.5-5.0) g/dL Intake and Output 12/20/17 12/21/17 12/21/17 22:59 06:59 14:59 Intake Total 1450 / 1450 0 / 0 190 / 190 Output Total 550 / 550 Balance 900 / 900 0 / 0 189 / 189 Intake: IV 250 / 250 Ceftriaxone 1 g In Ns 100 ml @ 100 / 100 200 mls/hr IV Q24H [facility] Rx#: [id number] Levofloxacin Pb 750 mg In 150 150 / 150 ml @ 100 mls/hr IV Q24H [facility] Rx# :[id number] Oral 1200 / 1200 0 / 0 190 / 190 Output: Urine 550 / 550 Urine Amount (Catheter) Other: Urine Appearance Clear Urine Color Light Nery Urine Odor Normal # Voids 3 Weight 159 lb 2.78 oz Patient Weight 12/22/17 06:59 Weight 159 lb 2.78 oz - Imaging and Cardiology Imaging & Cardiology Narrative: Date of Exam: 12/20/17 Type of Exam(s): US echo doppler complete DATE OF PROCEDURE 12/20/2017 PROCEDURE PERFORMED 2D echocardiography, M-mode assessment, full color spectral Doppler assessment. FINDINGS 1. LEFT VENTRICLE. Left ventricle appears normal in size. Normal left ventricular wall thickness noted. Left ventricular systolic function appears low normal. Estimated left ventricular ejection fraction is 50-55%. No significant regional wall motion abnormalities noted. Grade II diastolic dysfunction noted suggestive of elevated left ventricular end diastolic pressure and elevated left atrial pressure. 2. RIGHT VENTRICLE. Right ventricle appears normal in size. Normal right ventricular wall thickness noted. Normal right ventricular systolic function noted. 3. RIGHT ATRIUM. Right atrium appears normal in size. 4. LEFT ATRIUM. Left atrium is mildly enlarged. 5. MITRAL VALVE. Mitral valve appears structurally normal. There is trivial mitral regurgitation noted. No significant mitral stenosis noted. 6. AORTIC VALVE. Aortic valve appears tricuspid. No significant aortic stenosis noted. Trivial aortic regurgitation noted. 7. TRICUSPID VALVE. Tricuspid valve appears structurally normal. Trivial tricuspid regurgitation noted. 8. PULMONIC VALVE. Pulmonic valve poorly visualized on today's study. Trivial pulmonic regurgitation noted. 9. INFERIOR VENA CAVA. IVC appears normal in size. Normal respirophasic variation noted. 10. PULMONARY ARTERY. Unable to estimate pulmonary artery systolic pressure accurately due to incomplete tricuspid regurgitation jet. CONCLUSIONS 1. Low normal left ventricular systolic function, estimated ejection fraction of 50-55%. 2. Normal RV systolic function. 3. Trivial mitral regurgitation noted. 4. Trivial aortic regurgitation noted. 5. Trivial tricuspid regurgitation noted. 6. Inferior vena cava appears normal in size with normal respirophasic variation noted. 12/22/17 15:46 12/22/17 15:46 Date of Exam: 12/20/17 Ordering Provider: Shantelle Ness MD Type of Exam(s): XR chest 2V Reason for Exam(s): borderline hypoxia, rule out pulm edema, other? INDICATION: borderline hypoxia, rule out pulm edema, other? PROCEDURE: CHEST 2-VIEWS UPRIGHT (PA & LAT) Encounter: Initial COMPARISON: December 19, 2017 FINDINGS: Lungs again show linear scarring or atelectasis in the left lower lobe. There is new mild interstitial prominence with trace pleural fluid seen on the lateral view. No pneumothorax. No lobar pneumonia. Heart size and mediastinal contours are stable. Impression: Developing mild pulmonary edema. Assessment and Plan - Assessment and Plan (1) Tachycardia Status: Acute (2) Sepsis Status: Acute - Assessment and Plan 12/20/17 Tachycardia Current visit: Yes Status: Acute - Presented to ED, EKG showed A Flutter, given Cardizem and fluid bolus - converted and discharged with abx for UTI and BB - now hospitalized with sepsis, no return of tachycardia - EKG reviewed, appears ST but impossible to say for sure - No previous history of arrhythmia - Plan outpatient holter monitor after discharge - continue to monitor telemetry - TSH 0.19 and Mag 1.9 Sepsis Current visit: Yes Status: Acute - Urinary source. Managed by medicine Thank you for allowing us to participate in the care of this patient, we will follow along with you 12/21/17 No change to plan of care - no tachycardia, or arrhythmia seen on telemetry Hospital Course Summary Disclaimer: The visit summary below is not to be considered part of the above Progress Note. Hospital Course: 12/19/17 Admit, inpatient status, under the hospitalist service. PCP: Dr. Whelan Pyelonephritis, severe sepsis -Urine culture from 12/18/17 + for E. coli, sensitivities pending -Rocephin daily -lactate normal @ 1.8 -F/U procalcitonin, cultures -IVF bolus then NS at 125 ml/hr A-flutter -- in ED 12/18/17 -EKG, troponin -Echo in am -Telemetry -Likely sepsis response Hypokalemia/Hypophosphatemia -replacement ordered per attending -Mag 1.8 Transaminitis -? sepsis response -trend Advanced directives -Brother is DPOA -Code status: DNR 12/20/17 -EKG yesterday showed sinus with IVC delay, troponin neg. Echo done this am -Urine culture from 12/18/17 + for E. coli, pansensitive. Urine culture from 12/19 also + for E. coli -Continue Rocephin, day #2. Procalcitonin 6.89 --> 4.54. WBC trending down. Continues to have fevers. Mild hypoxia-CXR repeated - mild edema. Stop IVF and give Lasix 20 mg IV x1. IS Hypokalemia/Hypophosphatemia-resolved after replacement yesterday Transaminitis-Improving, trending down. Low TSH (0.19)-normal free T4
[2017-12-21] MEDS: IBUPROFEN 200 MG TABLET PO PRN (15:41)
--- NOTE | 2017-12-21 16:18 | Progress Note ---
- Date 12/21/17 Subjective: Patient is seen today resting in bed. She reports she is feeling better, but is very "wiped out." She reports she was able to eat a little bit today. She's been drinking fluids. She states she is urinating well. No fever today that she is aware of. Reports her headache is gone. No chest pain, shortness of breath, nausea or vomiting. She had been afebrile since last evening, but has 101.9 temp now at 1534. Objective Vital signs: Temperature 101.9 F H 12/21/17 15:34 Pulse Rate 71 12/21/17 15:34 Respiratory Rate 18 12/21/17 15:34 Blood Pressure 129/73 12/21/17 15:34 Pulse Oximetry 97 12/21/17 15:34 Height/Weight/BMI: Height 1.55 m Weight 72.2 kg Body Mass Index 29.8 - Constitutional Present: no acute distress, well nourished, well developed - Routine HEENT Exam Head: Present: normocephalic, atraumatic - Routine Respiratory Exam Present: CTA bilaterally. Absent: wheezes - Routine Cardiovascular Exam Present: RRR, no murmur - Routine Abdominal Exam Present: soft, normoactive bowel sounds, non distended, non tender Comments: No flank pain - Routine Extremities Exam Present: no edema, normal capillary refill - Routine Skin Exam Present: dry, warm - Routine Neurological Exam Present: alert, oriented X3 - Routine Lymphatic Exam Lymphatic: Absent: adenopathy - Routine Psychiatric Exam Present: normal affect, cooperative Results - Labs CBC & Chem 7: 12/21/17 04:07 12/21/17 04:07 Microbiology Results: Microbiology 12/19/17 17:33 Peripheral/Iv Start Gram Stain - Final 12/19/17 17:33 Peripheral/Iv Start Blood Culture - Preliminary Escherichia coli 12/19/17 17:51 Peripheral/Iv Start Blood Culture - Preliminary No Growth After 1 Day 12/19/17 17:51 Urine, Voided (Cc/notcc) Urine Culture - Final Escherichia coli - Echocardiogram History of Echocardiogram: Date of Exam: 12/20/17. Type of Exam(s): US echo doppler complete. DATE OF PROCEDURE. 12/20/2017. PROCEDURE PERFORMED. 2D echocardiography, M-mode assessment, full color spectral Doppler assessment. FINDINGS. 1. LEFT VENTRICLE. Left ventricle appears normal in size. Normal left ventricular wall thickness noted. Left ventricular systolic function appears low normal. Estimated left ventricular ejection fraction is 50-55%. No significant regional wall motion abnormalities noted. Grade II diastolic dysfunction noted suggestive of elevated left ventricular end diastolic pressure and elevated left atrial pressure. 2. RIGHT VENTRICLE. Right ventricle appears normal in size. Normal right ventricular wall thickness noted. Normal right ventricular systolic function noted. 3. RIGHT ATRIUM. Right atrium appears normal in size. 4. LEFT ATRIUM. Left atrium is mildly enlarged. 5. MITRAL VALVE. Mitral valve appears structurally normal. There is trivial mitral regurgitation noted. No significant mitral stenosis noted. 6. AORTIC VALVE. Aortic valve appears tricuspid. No significant aortic stenosis noted. Trivial aortic regurgitation noted. 7. TRICUSPID VALVE. Tricuspid valve appears structurally normal. Trivial tricuspid regurgitation noted. 8. PULMONIC VALVE. Pulmonic valve poorly visualized on today's study. Trivial pulmonic regurgitation noted. 9. INFERIOR VENA CAVA. IVC appears normal in size. Normal respirophasic variation noted. 10. PULMONARY ARTERY. Unable to estimate pulmonary artery systolic pressure accurately due to incomplete tricuspid regurgitation jet. CONCLUSIONS. 1. Low normal left ventricular systolic function, estimated ejection fraction of 50-55%. 2. Normal RV systolic function. 3. Trivial mitral regurgitation noted. 4. Trivial aortic regurgitation noted. 5. Trivial tricuspid regurgitation noted. 6. Inferior vena cava appears normal in size with normal respirophasic variation noted. Assessment and Plan Assessment and Plan: Assessment Severe sepsis secondary to E. coli Pyelonephritis (SIRS = leukocytosis, fever 101.5, organ dysfunction: bilirubin >2) UTI/Pyelonephritis with E coli Bacteremia - + e coli New onset a-flutter on 12/18/17 Erythema to Left upper arm (tricep area) Transaminitis Hypokalemia (POA) - resolved Thrombocytopenia (not POA) Mild hypoxia 89% room air, mild pulmonary edema (12/20/17) Hypercalcemia (POA) - chronic Hypophosphatemia (POA) Hyperparathyroidism Nephrolithiasis Overweight with BMI 29.9 Plan Day#3 Rocephin, Day #2 Levaquin. Pt still spiking fevers. UC + e coli - pansensitive. Procalcitonin 6.89 --> 4.54--> 2.55. Leukocytosis resolved. + e coli on blood culture - sensitivities still pending. Check CT to look for stones -renal protocol. Pt willing to go ahead with this today. Cardiology following patient for recent atrial flutter. Patient to continue on telemetry. Per cardiology, needs outpatient Holter monitor after discharge. 12/21/2017-5:15 PM-I examined the patient independently. I reviewed this chart, the patient history, and the CHIEF PORT DIRECTOR's/PA's documented findings as above. We discussed and formulated the assessment and plan as above with the additions below.-Dr. Ness The patient was seen this afternoon in her room. She states this morning she was feeling a little bit better but then this afternoon she feels fatigued again. Her appetite is poor. She denies any pain. She is eating and drinking well. Telemetry shows sinus rhythm. On exam she is alert and in no acute distress. She looks like she is doing better to me today. Skin is warm and dry. Chest is clear to auscultation. Cardiovascular reveals a regular rate and rhythm. Abdomen is soft and nontender. Extremities are free of edema. Urine culture shows Escherichia coli which is pansensitive. One of 2 blood cultures is positive for Escherichia coli and sensitivities are pending. Pro- calcitonin is trending down. White count is trending down. Impression and plan Severe sepsis with Escherichia coli bacteremia, and Escherichia coli UTI in a patient with history of renal stones. Continue Levaquin and Rocephin for now. If Escherichia coli on blood culture is sensitive to Levaquin, we'll likely discontinue Rocephin and continue Levaquin. She will need at least a two-week course of antibiotics due to bacteremia. Her course may be longer if she has renal stones or perinephric abscess on CT scan. Continue to monitor on telemetry regarding questionable atrial flutter on 2017. The patient will need outpatient Holter monitor as well. Regarding low TSH with normal free T4, would have the patient repeat TSH next month when she goes to see Dr. Valles. She will be seeing him for hyperparathyroidism. Repeat CBC and renal panel tomorrow DVT Prophylaxis: SCD's Resuscitation Status: Do Not Resuscitate - Physician Narrative Narrative: Date: 12/21/17 Time: 1615 Hospital Course Summary Disclaimer: The visit summary below is not to be considered part of the above Progress Note. Hospital Course: 12/19/17 Admit, inpatient status, under the hospitalist service. PCP: Dr. Whelan Pyelonephritis, severe sepsis -Urine culture from 12/18/17 + for E. coli, sensitivities pending -Rocephin daily -lactate normal @ 1.8 -F/U procalcitonin, cultures -IVF bolus then NS at 125 ml/hr A-flutter -- in ED 12/18/17 -EKG, troponin -Echo in am -Telemetry -Likely sepsis response Hypokalemia/Hypophosphatemia -replacement ordered per attending -Mag 1.8 Transaminitis -? sepsis response -trend Advanced directives -Brother is DPOA -Code status: DNR 12/20/17 -EKG yesterday showed sinus with IVC delay, troponin neg. Echo done this am -Urine culture from 12/18/17 + for E. coli, pansensitive. Urine culture from 12/19 also + for E. coli -Continue Rocephin, day #2. Procalcitonin 6.89 --> 4.54. WBC trending down. Continues to have fevers. -Levaquin added due to continued fevers. Mild hypoxia-CXR repeated - mild edema. Stop IVF and give Lasix 20 mg IV x1. IS Hypokalemia/Hypophosphatemia-resolved after replacement yesterday Transaminitis-Improving, trending down. Low TSH (0.19)-normal free T4--> f-u with Dr. Valles as previously scheduled for hyperparathyroidism. 12/21/17 Improving slowly. No further hypoxia. Day#3 Rocephin, Day #2 Levaquin. Pt still spiking fevers. UC + e coli - pansensitive. Procalcitonin 6.89 --> 4.54--> 2.55. Leukocytosis resolved. + e coli on blood culture - sensitivities still pending. Check CT to look for stones -renal protocol. Pt willing to go ahead with this today. Cardiology following patient for recent atrial flutter. Patient to continue on telemetry. Per cardiology, needs outpatient Holter monitor after discharge.
[2017-12-21] MEDS: CEFTRIAXONE 1 G in NS 100 ML IV SCH (17:35)
[2017-12-21] MEDS: LEVOFLOXACIN PB 750 MG/150 ML BAG IV SCH (19:32)
[2017-12-21] MEDS ORDERED: NS 1,000 ML IV SCH (21:30)
[2017-12-21] MEDS ORDERED: SALINE FLUSH 10ml SYRINGE IV PRN (22:32)
[2017-12-22] MEDS: ACETAMINOPHEN 325 MG TABLET PO PRN ×2 (04:16→11:33)
[2017-12-22] MEDS ORDERED: POTASSIUM CHLORIDE INJ 40 MEQ in NS 1,000 ML IV SCH (07:30)
--- NOTE | 2017-12-22 08:23 | Progress Note ---
- Date 12/22/17 Subjective: Patient seen this am prior to her shower. States she feels the best today that she has since she has been ill. She is was disappointed to hear she has a stone. She denies CP, SOA, n/v, pain. Objective Vital signs: Temperature 97.4 F 12/22/17 07:40 Pulse Rate 74 12/22/17 08:00 Respiratory Rate 18 12/22/17 07:40 Blood Pressure 120/71 12/22/17 07:40 Pulse Oximetry 96 12/22/17 07:40 Height/Weight/BMI: Height 1.55 m Weight 75.6 kg Body Mass Index 29.8 - Constitutional Present: no acute distress, well nourished, well developed - Routine HEENT Exam Head: Present: normocephalic, atraumatic - Routine Respiratory Exam Present: CTA bilaterally. Absent: wheezes - Routine Cardiovascular Exam Present: RRR, no murmur - Routine Abdominal Exam Present: soft, non distended, non tender - Routine Extremities Exam Present: no edema, normal capillary refill - Routine Skin Exam Present: dry, warm - Routine Neurological Exam Present: alert, oriented X3 - Routine Lymphatic Exam Lymphatic: Absent: adenopathy - Routine Psychiatric Exam Present: normal affect, cooperative Results - Labs CBC & Chem 7: 12/22/17 04:46 12/22/17 04:46 Microbiology Results: Microbiology 12/19/17 17:33 Peripheral/Iv Start Gram Stain - Final 12/19/17 17:33 Peripheral/Iv Start Blood Culture - Preliminary Escherichia coli 12/22/17 04:53 Peripheral/Iv Start Blood Culture - Preliminary Culture Initiated - Results Pending 12/22/17 04:47 Peripheral/Iv Start Blood Culture - Preliminary Culture Initiated - Results Pending 12/19/17 17:51 Peripheral/Iv Start Blood Culture - Preliminary No Growth After 2 Days 12/19/17 17:51 Urine, Voided (Cc/notcc) Urine Culture - Final Escherichia coli Assessment and Plan Assessment and Plan: Assessment Severe sepsis secondary to E. coli Pyelonephritis (SIRS = leukocytosis, fever 101.5, organ dysfunction: bilirubin >2) UTI/Pyelonephritis with E coli 5x10mm kidney stone at L UPJ with hydronephrosis Bacteremia - + e coli (pansensitive) New onset a-flutter on 12/18/17 - converted to NSR following cardizem Erythema to Left upper arm (tricep area) Transaminitis Hypokalemia (POA) - resolved Thrombocytopenia (not POA) Mild hypoxia 89% room air, mild pulmonary edema (12/20/17)-resolvled Hypercalcemia (POA) - chronic Hypophosphatemia (POA) Hyperparathyroidism Low TSH (0.19) with normal free T4 -on admission (pt will be seeing extruding press adjuster next month) Nephrolithiasis Overweight with BMI 29.9 Plan Day #3 Levaquin (not due to be given until this sumit). UC and BC + e coli - pansensitive. Procalcitonin 6.89 --> 4.54--> 2.55 -->1.13. Leukocytosis resolved. Completed 3 days of Rocephin. Will DC today now that sensitivities are resulted on blood culture. Temp 100.6 this am. Repeat BC were drawn this am. CT showed 5x10mm stent at L UPJ with hydronephrosis. Discussed with Dr. Vale. He wants pt transferred to [place] for stent placement. Pt NPO for procedure per Dr. Vale. Cardiology (Dr Padilla) following patient for recent atrial flutter. Converted to NSR following cardizem. Currently NSR. Patient to continue on telemetry. Per cardiology, needs outpatient Holter monitor after discharge. Regarding low TSH with normal free T4, would have the patient repeat TSH next month when she goes to see Dr. Valles. She will be seeing him for hyperparathyroidism. Potassium 3.1 this am. Given 20mEq KCl with sip of water. Potassium added to IVF's. 12/22/2017-10 AM-I examined the patient independently. I reviewed this chart, the patient history, and the CEMENT BLOCK MAKER's/PA's documented findings as above. We discussed and formulated the assessment and plan as above with the additions below.-Dr. Ness The patient was seen this morning in her room. CT scan results were discussed with the patient. She is agreeable to transfer to [place] to see Dr. Murray for removal of her left UPJ stone. She is feeling better today. Her energy level is better. She denies any pain. On exam she is alert and in no acute distress. Chest is clear to auscultation. Cardiovascular reveals a regular rate and rhythm. Abdomen is soft and nontender. Extremities are free of edema. No arrhythmias on telemetry Phosphorus is low at 1.9, magnesium is low at 1.5, potassium was low at 3.1. Protocol calcitonin has normalized at 1.13 (was 6.89 on admission) Culture on admission was positive for Escherichia coli which is pansensitive One of 2 blood cultures on admission was positive for Escherichia coli which is pansensitive Repeat blood cultures were obtained this morning on 12/22/2017 and are pending Impression and plan Escherichia coli bacteremia and UTI. With findings of UPJ stone on the left with left hydronephrosis and perinephric edema, consultation was made with Dr. Murray who recommends transfer to [facility] for removal of stone. I did call and talk with Dr. Augustus Ramirez, hospitalist, who has accepted the patient. Regarding hypokalemia, the patient was started on normal saline with 40 mEq of potassium to run at 100 and hour. She was given oral potassium chloride 20 mEq by mouth 1. Regarding hypophosphatemia, 30 millimoles of potassium phosphate was ordered and will be initiated prior to transfer Regarding hypomagnesemia, 1 g magnesium sulfate was ordered and will be given IV prior to transfer DVT Prophylaxis: SCD's Resuscitation Status: Do Not Resuscitate - Physician Narrative Narrative: Date: 12/21/17 Time: 1615 Hospital Course Summary Disclaimer: The visit summary below is not to be considered part of the above Progress Note. Hospital Course: 12/19/17 Admit, inpatient status, under the hospitalist service. PCP: Dr. Whelan Pyelonephritis, severe sepsis - pt declines imaging at this time -Urine culture from 12/18/17 + for E. coli, sensitivities pending -Rocephin daily -lactate normal @ 1.8 -F/U procalcitonin, cultures -IVF bolus then NS at 125 ml/hr A-flutter -- in ED 12/18/17 -EKG, troponin -Echo in am -Telemetry -Likely sepsis response Hypokalemia/Hypophosphatemia -replacement ordered per attending -Mag 1.8 Transaminitis -? sepsis response -trend Advanced directives -Brother is DPOA -Code status: DNR 12/20/17 -EKG yesterday showed sinus with IVC delay, troponin neg. Echo done this am -Urine culture from 12/18/17 + for E. coli, pansensitive. Urine culture from 12/19 also + for E. coli -Continue Rocephin, day #2. Procalcitonin 6.89 --> 4.54. WBC trending down. Continues to have fevers. -Levaquin added due to continued fevers. Mild hypoxia-CXR repeated - mild edema. Stop IVF and give Lasix 20 mg IV x1. IS Hypokalemia/Hypophosphatemia-resolved after replacement yesterday Transaminitis-Improving, trending down. Low TSH (0.19)-normal free T4--> f-u with Dr. Valles as previously scheduled for hyperparathyroidism. 12/21/17 Improving slowly. No further hypoxia. Day#3 Rocephin, Day #2 Levaquin. Pt still spiking fevers. UC + e coli - pansensitive. Procalcitonin 6.89 --> 4.54--> 2.55. Leukocytosis resolved. + e coli on blood culture - sensitivities still pending. Check CT to look for stones -renal protocol. Pt willing to go ahead with this today. Cardiology following patient for recent atrial flutter. Patient to continue on telemetry. Per cardiology, needs outpatient Holter monitor after discharge. 12/22/17 Day #3 Levaquin (not due to be given until this sumit). UC and BC + e coli - pansensitive. Procalcitonin 6.89 --> 4.54--> 2.55 -->1.13. Leukocytosis resolved. Completed 3 days of Rocephin. Will DC today now that sensitivities are resulted on blood culture. Temp 100.6 this am. Repeat BC were drawn this am. CT showed 5x10mm stent at L UPJ with hydronephrosis. Discussed with Dr. Vale. He wants pt transferred to [place] for stent placement. Pt NPO for procedure per Dr. Vale. Cardiology (Dr Padilla) following patient for recent atrial flutter. Converted to NSR following cardizem. Currently NSR. Patient to continue on telemetry. Per cardiology, needs outpatient Holter monitor after discharge. Regarding low TSH with normal free T4, would have the patient repeat TSH next month when she goes to see Dr. Valles. She will be seeing him for hyperparathyroidism. Potassium 3.1 this am. Given 20mEq KCl with sip of water. Potassium added to IVF's.
[2017-12-22] MEDS: MULTI-VITAMIN PLAIN TABLET PO SCH (08:50)
--- NOTE | 2017-12-22 08:59 | Discharge Summary ---
Discharge Information Date of admission: 12/19/17 17:10 Anticipated date of discharge: 12/22/17 (transfer to [place]) Attending Physician: Shantelle Ness MD Primary care physician: Radha Whelan DO Consults: Consulting Provider: Harjinder Padilla Reason For Exam: new onset a flutter? on 12/18/17 Severe sepsis secondary to E. coli Pyelonephritis (SIRS = leukocytosis, fever 101.5, organ dysfunction: bilirubin >2) UTI/Pyelonephritis with E coli 5x10mm kidney stone at L UPJ with hydronephrosis Bacteremia - + e coli (pansensitive) Questionable New onset a-flutter on 12/18/17 - converted to NSR following cardizem Erythema to Left upper arm (tricep area) -resolved Transaminitis Hypokalemia (POA) Thrombocytopenia (not POA) Mild hypoxia 89% room air, mild pulmonary edema (12/20/17)-resolvled Hypercalcemia (POA) - chronic Hypophosphatemia (POA) Hypomagnesemia Hyperparathyroidism Low TSH (0.19) with normal free T4 -on admission (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 LEFT VENTRICLE. Left ventricle appears normal in size. Normal left ventricular wall thickness noted. Left ventricular systolic function appears low normal. Estimated left ventricular ejection fraction is 50-55%. No significant regional wall motion abnormalities noted. Grade II diastolic dysfunction noted suggestive of elevated left ventricular end diastolic pressure and elevated left atrial pressure. 2. RIGHT VENTRICLE. Right ventricle appears normal in size. Normal right ventricular wall thickness noted. Normal right ventricular systolic function noted. 3. RIGHT ATRIUM. Right atrium appears normal in size. 4. LEFT ATRIUM. Left atrium is mildly enlarged. 5. MITRAL VALVE. Mitral valve appears structurally normal. There is trivial mitral regurgitation noted. No significant mitral stenosis noted. 6. AORTIC VALVE. Aortic valve appears tricuspid. No significant aortic stenosis noted. Trivial aortic regurgitation noted. 7. TRICUSPID VALVE. Tricuspid valve appears structurally normal. Trivial tricuspid regurgitation noted. 8. PULMONIC VALVE. Pulmonic valve poorly visualized on today's study. Trivial pulmonic regurgitation noted. 9. INFERIOR VENA CAVA. IVC appears normal in size. Normal respirophasic variation noted. 10. PULMONARY ARTERY. Unable to estimate pulmonary artery systolic pressure accurately due to incomplete tricuspid regurgitation jet. CONCLUSIONS 1. Low normal left ventricular systolic function, estimated ejection fraction of 50-55%. 2. Normal RV systolic function. 3. Trivial mitral regurgitation noted. 4. Trivial aortic regurgitation noted. 5. Trivial tricuspid regurgitation noted. 6. Inferior vena cava appears normal in size with normal respirophasic variation noted. - Laboratory Labs: Admission labs 12/19/17 12/19/17 17:33 17:33 WBC 13.6 H RBC 4.40 Hgb 13.1 Hct 37.9 Plt Count 153 Neutrophils % (Manual) 94.0 H Band Neutrophils % 1.0 Neutrophils # (Manual) 12.8 H Sodium 137 Potassium 3.2 L Chloride 98 Carbon Dioxide 28 D BUN 23.0 H Creatinine 0.8 D Estimated Creat Clear 49 GFR Calculation 72 Glucose 133 H Calcium 11.1 H D Phosphorus 1.7 L Magnesium 1.8 Total Bilirubin 2.10 H AST 55 H D ALT 71 H Alkaline Phosphatase 126 Troponin I < 0.012 Total Protein 6.8 Albumin 4.2 Globulin 2.6 Albumin/Globulin Ratio 1.6 Plasma Lactate 1.8 Discharge labs 12/22/17 12/22/17 04:46 04:46 WBC 4.3 L RBC 3.63 L Hgb 10.7 L Hct 31.6 L Plt Count 110 L Neut % (Auto) 81.9 H Sodium 138 Potassium 3.1 L D Chloride 106 Carbon Dioxide 23 BUN 13.0 Creatinine 0.5 L Estimated Creat Clear 50 GFR Calculation 123 Glucose 89 Calcium 9.7 D Total Bilirubin 0.90 AST 57 H ALT 69 H Alkaline Phosphatase 231 H D Total Protein 5.5 L Albumin 3.1 L Globulin 2.4 Albumin/Globulin Ratio 1.3 12/22/17 04:46 Phosphorus 1.9 L Magnesium 1.5 L D Procalcitonin trend 12/19/17 12/20/17 12/21/17 17:33 03:51 04:07 Procalcitonin 6.89 H* 4.54 H* 2.55 H* 12/22/17 04:46 Procalcitonin 1.13 Thyroid studies 12/20/17 12/20/17 03:51 03:57 TSH 0.19 L D Free T4 1.07 UA on admission 12/19/17 17:51 Ur Collection Type Urine, void-cc/notcc Urine Color Yellow Urine Clarity Sl cloudy Urine pH 7.0 Ur Specific [place] 1.010 L Urine Protein 2+ A Urine Glucose (UA) Negative Urine Ketones Negative Urine Occult Blood 2+ A Urine Nitrate Positive A Urine Bilirubin Negative Urine Urobilinogen 0.2 Ur Leukocyte Esterase 1+ A Urine RBC 3-5 H Urine WBC 5-10 H Urine Bacteria 4+ H - Microbiology Microbiology 12/19/17 17:33 Peripheral/Iv Start Blood Culture (1 of 2) Escherichia coli - PANSENSITIVE 12/19/17 17:51 Peripheral/Iv Start Blood Culture (2 of 2) No Growth After 2 Days 12/22/17 04:53 Repeat BC (1 of 2) Peripheral/Iv Start Blood Culture - Preliminary Results Pending 12/22/17 04:47 Repeat BC (2 of 2) Peripheral/Iv Start Blood Culture - Preliminary Results Pending 12/19/17 17:51 Urine, Voided Urine Culture - Final Escherichia coli - PANSENSITIVE - Radiology Radiology: Date of Exam: 12/20/17 INDICATION: borderline hypoxia, rule out pulm edema, other? PROCEDURE: CHEST 2-VIEWS UPRIGHT (PA & LAT) FINDINGS: Lungs again show linear scarring or atelectasis in the left lower lobe. There is new mild interstitial prominence with trace pleural fluid seen on the lateral view. No pneumothorax. No lobar pneumonia. Heart size and mediastinal contours are stable. Impression: Developing mild pulmonary edema. Date of Exam: 12/19/17 Indication: Sepsis PROCEDURE: XR chest 1V: FINDINGS: Minimal linear atelectasis or scar in the left lower lobe. The lungs are otherwise clear. There is no consolidative pneumonia, pleural effusion or pneumothorax identified. The heart size, pulmonary vasculature and mediastinum are within normal limits. Subacute healing right clavicular fracture. IMPRESSION: No acute cardiopulmonary abnormality. Date of exam: 12/21/2017 Indication: UTI/fever Procedure: CT abd/pelvis w/o IV contrast 5 x 10 mm left ureteropelvic junction calculus, left hydronephrosis. Nephric edema. Bilateral renal calculi. History of Present Illness HPI: Nella Mosley is a 67 year old who developed right flank pain and body aches, as if she had a fever on 12/18/17. She had violent shakes and chills but never actually took her fever. She felt utterly exhausted and weak. She has been thirsty but each time she tried to drink/eat anything she became nauseated. She has also had a headache. She denies chest pain or palpitations, difficulty breathing, cough/congestion or sore throat. She denies dizziness or syncope. She denies abdominal pain, diarrhea, or constipation. She has not had any urinary symptoms such as dysuria, frequency, or urgency. She had a bug bite to her right patel but otherwise denies any other rashes. She presented to [facility] ED on 12/18/17. She was found to be in a-flutter with a rate of 132, and after cardizem she converted to NSR. She was diagnosed with UTI and had a WBC of 19.4 and 94% neutrophils. She felt much better after her HR slowed, and IVF and analgesics, and was discharged home with Rx for metoprolol and levaquin. She followed up with Leonides Allen APRN in the clinic, but her symptoms were still persistent with nausea, myalgias, and fatigue. At that time Dr. Yeager was notified and she was admitted to inpatient status for further workup for suspected pyelonephritis, possible sepsis, and new-onset a-flutter. LOS is expected to exceed 2 overnights. Objective Vital signs: Temperature 97.4 F 12/22/17 07:40 Pulse Rate 74 12/22/17 08:00 Respiratory Rate 18 12/22/17 07:40 Blood Pressure 120/71 12/22/17 07:40 Pulse Oximetry 96 12/22/17 07:40 Height/Weight/BMI: Height 1.55 m Weight 75.6 kg Body Mass Index 29.8 - Constitutional Present: no acute distress, well nourished, well developed - Routine HEENT Exam Head: Present: normocephalic, atraumatic - Routine Respiratory Exam Present: CTA bilaterally. Absent: wheezes - Routine Cardiovascular Exam Present: RRR, no murmur - Routine Abdominal Exam Present: soft, non distended, non tender - Routine Extremities Exam Present: no edema, normal capillary refill - Routine Skin Exam Present: dry, warm - Routine Neurological Exam Present: alert, oriented X3 - Routine Lymphatic Exam Lymphatic: Absent: adenopathy - Routine Psychiatric Exam Present: normal affect, cooperative Hospital Course This is a general summary of the patient's hospital course. For more details refer to the complete medical record. Hospital course: 12/19/17 Admit, inpatient status, under the hospitalist service. PCP: Dr. Whelan Pyelonephritis, severe sepsis - pt declines imaging at this time -Urine culture from 12/18/17 + for E. coli, sensitivities pending -Rocephin daily -lactate normal @ 1.8 -F/U procalcitonin, cultures -IVF bolus then NS at 125 ml/hr A-flutter -- in ED 12/18/17 -EKG, troponin -Echo in am -Telemetry -Likely sepsis response Hypokalemia/Hypophosphatemia -replacement ordered per attending -Mag 1.8 Transaminitis -? sepsis response -trend Advanced directives -Brother is DPOA -Code status: DNR 12/20/17 -EKG yesterday showed sinus with IVC delay, troponin neg. Echo done this am -Urine culture from 12/18/17 + for E. coli, pansensitive. Urine culture from 12/19 also + for E. coli -Continue Rocephin, day #2. Procalcitonin 6.89 --> 4.54. WBC trending down. Continues to have fevers. -Levaquin added due to continued fevers. Mild hypoxia-CXR repeated - mild edema. Stop IVF and give Lasix 20 mg IV x1. IS Hypokalemia/Hypophosphatemia-resolved after replacement yesterday Transaminitis-Improving, trending down. Low TSH (0.19)-normal free T4--> f-u with Dr. Valles as previously scheduled for hyperparathyroidism. 12/21/17 Improving slowly. No further hypoxia. Day#3 Rocephin, Day #2 Levaquin. Pt still spiking fevers. UC + e coli - pansensitive. Procalcitonin 6.89 --> 4.54--> 2.55. Leukocytosis resolved. + e coli on blood culture - sensitivities still pending. Check CT to look for stones -renal protocol. Pt willing to go ahead with this today. 12/22/17 Day #3 Levaquin (not due to be given until this sumit). UC and BC + e coli - pansensitive. Procalcitonin 6.89 --> 4.54--> 2.55 -->1.13. Leukocytosis resolved. Completed 3 days of Rocephin. Will DC today now that sensitivities are resulted on blood culture. Temp 100.6 this am. Repeat BC were drawn this am. CT showed 5x10mm stent at L UPJ with hydronephrosis. Discussed with Dr. Vale. He wants pt transferred to [place] for stent placement. Pt NPO for procedure per Dr. Vale. Cardiology (Dr Padilla) following patient for recent possible atrial flutter. Converted to NSR following ivf and cardizem. Currently NSR and no arrhythmias this hospitalization. Patient to continue on telemetry. Per cardiology, needs outpatient Holter monitor after discharge. Potassium 3.1 this am. Given 20mEq KCl with sip of water. Potassium added to IVF's. Magnesium and phosphate replacement given iv this am. Transferred to [facility] for specialty care with Dr. Murray. Time spent with patient: discharge greater than 30 minutes Resuscitation Status: Do Not Resuscitate Discharge Plan - Discharge Disposition Discharge Date: 12/22/17 Disposition: 02 To [facility] Acute Care *Condition: Stable Reason For Visit (Visit label in EMR): sepsis,UTI, failed outpatient treatment - Discharge Medications *Discharge Medications: New Bisacodyl Supp [Dulcolax] 10 mg RECTALLY DAILY PRN suppositor PRN Reason: Constipation Hydrocodone/APAP 5/325 [[place] 5/325] 1 tab PO Q6H PRN tab PRN Reason: Pain Milk of Magnesia [Mom] 30 ml PO DAILY PRN udc PRN Reason: Constipation Ondansetron Inj [Zofran] 4 mg IVP Q6H PRN vial PRN Reason: Nausea Potassium Chloride Inj [KCl 40 Meq/20 ml Inj] 40 meq IV .[id number] vial POTASSIUM PHOSPHATE (mMol) [K PHOS INJ 3 mM/ML] 30 mm IV .Q5H6M vial Acetaminophen [Tylenol] 650 mg PO Q5H PRN tab PRN Reason: Discomfort Levofloxacin Pb [Levaquin 750 mg Premix] 750 mg IV Q24H bag Continue Metoclopramide HCl [Reglan] 10 mg PO QID PRN #30 tab PRN Reason: n/v/cramps Metoprolol Tartrate 50 mg PO BID #60 tab Multivitamin [One Daily] 1 each PO DAILY metaxalone 800 mg tablet See Label Instructions PO TID PRN #10 tab PRN Reason: msucle spasm Discontinued HydroCHLOROthiazide [Hydrodiuril] 25 mg PO BID Levofloxacin [Levaquin] 1 tab PO DAILY #10 tab predniSONE [Prednisone] See Label Instructions PO DAILY - Discharge Packet/Instructions *Diet: NPO *Activity: As tolerated *Pain Management/Treatment: Toradol if needed *Wound Care: n/a *Expected Signs/Symptoms: n/a *Notify Physician if: n/a *During Business Hours Contact: n/a *After Business Hours Contact: n/a *Pending Lab/Results: Follow up w/your PCP - Referrals/Follow Up *Referrals/Follow Up: Radha Whelan DO [Primary Care Provider] - (needs f-u with PCP in 1 wk following DC from [place]) - Patient Handouts Patient Handouts: Urinary Tract Infection in Women (GEN), Sepsis (GEN) - Dismissal Complete Discharge Instructions are:: Complete Physician Narrative - Narrative Physician: Shantelle Ness MD Attestation Narrative: 12/22/2017-10 AM-I examined the patient independently. I reviewed this chart, the patient history, and the OPERATOR [employer]'s/PA's documented findings as above. We discussed and formulated the assessment and plan as above with the additions below.-Dr. Ness The patient was seen this morning in her room. CT scan results were discussed with the patient. She is agreeable to transfer to [place] to see Dr. Murray for removal of her left UPJ stone. She is feeling better today. Her energy level is better. She denies any pain. On exam she is alert and in no acute distress. Chest is clear to auscultation. Cardiovascular reveals a regular rate and rhythm. Abdomen is soft and nontender. Extremities are free of edema. No arrhythmias on telemetry Phosphorus is low at 1.9, magnesium is low at 1.5, potassium was low at 3.1. Procalcitonin has normalized at 1.13 (was 6.89 on admission) Urine Culture on admission was positive for Escherichia coli which is pansensitive One of 2 blood cultures on admission was positive for Escherichia coli which is pansensitive Repeat blood cultures were obtained this morning on 12/22/2017 and are pending Impression and plan Escherichia coli bacteremia and UTI. With findings of UPJ stone on the left with left hydronephrosis and perinephric edema, consultation was made with Dr. Murray who recommends transfer to [facility] for removal of stone. I did call and talk with Dr. Augustus Ramirez, hospitalist, who has accepted the patient. Regarding hypokalemia, the patient was started on normal saline with 40 mEq of potassium to run at 100 and hour. She was given oral potassium chloride 20 mEq by mouth 1. Regarding hypophosphatemia, 30 millimoles of potassium phosphate was ordered and will be initiated prior to transfer Regarding hypomagnesemia, 1 g magnesium sulfate was ordered and will be given IV prior to transfer
[2017-12-22] MEDS ORDERED: MAGNESIUM SULFATE 1gm PREMIX 1 GM/100 ML BAG IV ONE (09:08)
[2017-12-22] MEDS ORDERED: POTASSIUM PHOSPHATE (mMol) 30 MMOL in NS 500ml 500 ML IV SCH (09:09)
[2017-12-22 11:54] VITALS: BP 119/66; PULSE 59; RESP 16; TEMP 98.2; O2SAT 97
--- NOTE | 2017-12-22 13:55 | CT Scan Report ---
Indication: uti/pyelo - h/o kidney stones PROCEDURE: CT renal wo con (stone rory): Encounter: Initial Comparison: Renal CT dated January 06, 2017 Technique: Axial CT images were performed through the abdomen and pelvis without intravenous contrast. Coronal and sagittal two-dimensional reformats. Automated Exposure Control and Iterative Reconstruction dose reducing techniques were utilized. Findings: Mild atelectasis in the lower lobes with trace effusions. The unenhanced contours of the liver show fatty infiltration. The gallbladder, spleen, pancreas and adrenal glands are within normal limits. Small 3 mm lower pole right renal stone. No right ureteral stone. Left kidney shows moderate hydronephrosis with a 3 to 4 mm cluster of stones in the lower pole and an obstructing 9 x 5 x 6 mm proximal ureteral stone just below the ureteropelvic junction at the L4 level. Bladder is decompressed. Uterus is absent. No free fluid. No evidence of a bowel obstruction. Bone windows show no focal lytic or blastic lesions. Impression: Large obstructing left proximal ureteral stone with bilateral nephrolithiasis. There is a preliminary report by [email or web address] radiologic. .
== END 2017-12-22 12:50 | disposition short-term general hospital (02) | DRG 872 ==
LOC: MED 17:10 → SUATTDRO 17:10
PROVIDERS: ADMIT Hospitalist; ATTEND Internal Medicine